=== PATIENT | male | born 1985 | race Caucasian/White ===

== ENCOUNTER 2021-10-28 13:10 | Emergency (ER) | payer SELFPAY ==
[~2021-10-28] VITALS: Ht 170.2 cm; Wt 73.0 kg
[2021-10-28 13:12] VITALS: BP 109/67
[2021-10-28] MEDS ORDERED: SODIUM CHLORIDE 0.9% 1,000 ML IV ONE (14:15)
== END 2021-10-28 15:48 | disposition left against medical advice (07) ==
LOC: ER 13:10
DX: F10.129 Alcohol abuse with intoxication, unspecified (principal); Y90.9 Presence of alcohol in blood, level not specified; R00.0 Tachycardia, unspecified
CPT/HCPCS: 93005; 99283; J7030